=== PATIENT | female | born 2000 ===

== ENCOUNTER 2022-10-11 05:31 | Day surgery (SDC) | payer BC ==
[2022-10-05 09:15] VITALS: BMI 18.0
[2022-10-11 11:25] VITALS: BP 131/67; PULSE 59; RESP 25
[2022-10-11 11:36] VITALS: TEMP 98
== END 2022-10-11 11:37 | disposition home or self-care (01) ==
LOC: JASU-ENDO 05:31
PROVIDERS: ATTEND Student in an Organized Health Care Education/Training Program
PROC: 0DB78ZX Excision of Stomach, Pylorus, Via Natural or Artificial Opening Endoscopic, Diagnostic (ICD-10-PCS; 2022-10-11)
PROC: 0DB68ZX Excision of Stomach, Via Natural or Artificial Opening Endoscopic, Diagnostic (ICD-10-PCS; principal; 2022-10-11 10:30)
DX: K29.50 Unspecified chronic gastritis without bleeding (principal)
CPT/HCPCS: 81025; 88305-TC; 88342-TC